=== PATIENT | male | born 1985 | race Caucasian/White ===

== ENCOUNTER 2018-01-22 22:40 | Emergency (ER) | payer OTHER ==
[2018-01-22 22:45] VITALS: BP 141/90
--- NOTE | 2018-01-22 22:47 | EDPHY ---
H & P Stated Complaint: L hip pain, increasing x2 days, "tearing pain", worse when lifting Time Seen by Provider: 01/22/18 22:47 HPI/ROS: HPI: This is a 32-year-old male who presents with Chief Complaint: L hip pain, increasing x2 days, "tearing pain", worse when lifting Location: Left hip Quality: Pain Duration: 2 days Signs and Symptoms: No bleeding, no radiation, no numbness, no weakness, no tingling, no incontinence, + decreased range of motion, no swelling, + pain, no fever Timing: Gradual onset Severity: Moderate to severe Context: Patient reports that 2 days ago he went for 2 and 0.5 mi run which is not atypical for him and then approximately 12 hr later he started to developed left anterior hip pain that worsened with hip flexion. He reports the pain is nonradiating in nature. Pain is kind of mild and constant at baseline but if he ambulates her bears weight or flexes his hip the pain increases to 8/10. He reports that he had a similar injury when he was in high school when he ran cross-country. He has tried Tylenol and ibuprofen with no relief. Denies bowel or bladder changes, paresthesias, weakness. Modifying Factors: See above Comment: ROS: A comprehensive 10 system review of systems is otherwise negative aside from elements mentioned in the history of present illness. MEDICAL/SURGICAL/SOCIAL HISTORY: Medical history: Generally healthy. Does not take any regular medications. Surgical history: Denies Social history: Smoker. CONSTITUTIONAL: Well-developed, well-nourished adult white male, awake and alert, no obvious distress HEENT: Atraumatic and normocephalic. NECK: supple EXTREMITIES: 2/2 pulses, strength 5/5, HIP: Tenderness in the anterior portion ; no deformity or bulging appreciated; severe pain with flexion; Flexion decreased to 65, extension decreased to 75, hyper extension to 15, abduction to 45. Moderate Pain with internal rotation and external rotation. No tenderness over greater trochanter. DIP/PIP/MCP flexion/extension intact with good light touch sensation. no deformities, no clubbing, no cyanosis or edema. NEUROLOGICAL: no focal neuro deficits. GCS 15. Light touch sensation intact. SKIN: Warm and dry, no erythema. no rash. Good capillary refill. Source: Patient Exam Limitations: No limitations - Personal History Current Tetanus Diphtheria and Acellular Pertussis (TDAP): Yes - Medical/Surgical History Hx Asthma: No Hx Chronic Respiratory Disease: No Hx Diabetes: No Hx Cardiac Disease: No Hx Renal Disease: No Hx Cirrhosis: No Hx Alcoholism: No Hx HIV/AIDS: No Hx Splenectomy or Spleen Trauma: No Other PMH: denies - Social History Smoking Status: Current some day smoker Constitutional: Initial Vital Signs Temperature (C) 36.6 C 01/22/18 22:42 Heart Rate 120 H 01/22/18 22:42 Respiratory Rate 18 01/22/18 22:42 Blood Pressure 141/90 H 01/22/18 22:42 O2 Sat (%) 97 01/22/18 22:42 O2 Delivery Mode Room Air Allergies/Adverse Reactions: dark chocolate Allergy (Uncoded 01/22/18 22:42) mushrooms Allergy (Uncoded 01/22/18 22:42) Home Medications: Medication Instructions Recorded Cyclobenzaprine [Flexeril 10 MG 10 mg PO Q8 PRN #15 tab 01/22/18 (*)] oxyCODONE/APAP 5/325 [Percocet 1 - 2 tab PO Q4H PRN #10 tab 01/22/18 5/325 (*)] Medical Decision Making ED Course/Re-evaluation: No neurological deficits to warrant emergent MRI of the hip in the emergency room. Given Percocet and Valium with adequate pain relief. Provided crutches the patient and advised rest, pain control, muscle relaxers, orthopedic follow-up if symptoms persist for MRI No signs of neurovascular compromise/tenting of skin/compartment syndrome/ extremities and joints examined above and below area of concern and are neurovascularly intact. This patient was seen under the supervision of my secondary supervising physician. I evaluated care for this patient independently. Discussed this patient with Dr. Leyva. Differential Diagnosis: Differential diagnosis includes but is not limited to ileo psoas tendinitis, IT band, quadriceps strain, groin strain, labral tear. - Data Points Medications Given: Discontinued Medications Diazepam (Valium) 5 mg PO EDNOW ONE Stop: 01/22/18 22:54 Last Admin: 01/22/18 22:57 Dose: 5 mg Oxycodone/Acetaminophen (Percocet 5/325) 1 tab PO EDNOW ONE Stop: 01/22/18 22:54 Last Admin: 01/22/18 22:57 Dose: 1 tab Departure - Departure Disposition: Home, Routine, Self-Care Clinical Impression: Strain of left iliopsoas muscle Qualifiers: Encounter type: initial encounter Qualified Code(s): S76.912A - Strain of unspecified muscles, fascia and tendons at thigh level, left thigh, initial encounter Condition: Good Instructions: Hip Sprain (ED) Additional Instructions: Take Tylenol 650 mg every 4 hours and/or Ibuprofen 600 mg every 8 hours with food as needed for pain. Use Percocet every 6 hours as needed for severe/break through pain. Do not use Tylenol and Percocet concomitantly. Use Flexeril every 8 hr as needed for muscle spasm. Apply ice for 30 minutes at a time; 2-3 times per day for the next 1-2 days. Use crutches to aid ambulation. Start with toe-touch weight-bearing status on the left lower extremity. Follow up with Orthopedics in 1-2 weeks if symptoms persist at which time they will evaluate and recommend with you if conservative management versus further imaging like MRI is indicated. Referrals: Dennis Sequeira MD [Medical Doctor] - As per Instructions Prescriptions: Cyclobenzaprine [Flexeril 10 MG (*)] 10 mg PO Q8 PRN #15 tab PRN Reason: Spasms oxyCODONE/APAP 5/325 [Percocet 5/325 (*)] 1 - 2 tab PO Q4H PRN #10 tab PRN Reason: Pain, Severe
[2018-01-22] MEDS ORDERED: DIAZEPAM 5 MG TAB PO ONE (22:53)
[2018-01-22] MEDS ORDERED: OXYCODONE/APAP 5/325 TAB PO ONE (22:53)
== END 2018-01-22 23:39 | disposition home or self-care (01) ==
DX: S76.912A Strain of unspecified muscles, fascia and tendons at thigh level, left thigh, initial encounter (principal); F17.200 Nicotine dependence, unspecified, uncomplicated; Y99.9 Unspecified external cause status

== ENCOUNTER 2018-06-06 22:11 | Emergency (ER) | payer OTHER ==
[2018-06-06 22:20] VITALS: BP 133/102
--- NOTE | 2018-06-06 22:48 | EDPHY ---
H & P Stated Complaint: right index finger LAC Time Seen by Provider: 06/06/18 22:46 HPI/ROS: Chief Complaint: Finger laceration HPI: 32-year-old male sustained a laceration to his right index finger when the knife he was washing cut through the sponge. He has a laceration over the lateral aspect of his proximal phalanx. He is up-to-date in his tetanus. No other injuries. No numbness or weakness. ROS: 10 systems were reviewed and were negative except those elements noted in the HPI. PMH: Denies Social History: No smoking, no alcohol, no recreational drug use Family History: non-contributory Physical Exam: General: Awake, alert, no acute distress Right hand:. Patient has a 2 cm laceration over the lateral aspect of his right index finger proximal phalanx. Does not cross the joint line. He has full flexion extension strength. Sensations intact medially and laterally. Normal perfusion distally. No other injuries. Skin: No rash - Personal History Current Tetanus Diphtheria and Acellular Pertussis (TDAP): Yes - Medical/Surgical History Hx Asthma: No Hx Chronic Respiratory Disease: No Hx Diabetes: No Hx Cardiac Disease: No Hx Renal Disease: No Hx Cirrhosis: No Hx Alcoholism: No Hx HIV/AIDS: No Hx Splenectomy or Spleen Trauma: No Other PMH: denies - Social History Smoking Status: Never smoked Constitutional: Initial Vital Signs Temperature (C) 36.6 C 06/06/18 22:15 Heart Rate 89 06/06/18 22:15 Respiratory Rate 20 06/06/18 22:15 Blood Pressure 133/102 H 06/06/18 22:15 O2 Sat (%) 97 06/06/18 22:15 O2 Delivery Mode Room Air Allergies/Adverse Reactions: dark chocolate Allergy (Uncoded 06/06/18 22:14) mushrooms Allergy (Uncoded 06/06/18 22:14) Home Medications: Medication Instructions Recorded NK [No Known Home Meds] 06/06/18 Medical Decision Making Procedures: Procedure: Laceration repair. Verbal consent was obtained from the patient. The 1.5 cm laceration on the right index finger was anesthetized in the usual fashion. The wound was irrigated, draped and explored to its base with a gloved finger. There were no deep structures involved. No tendon injury was identified. The wound was repaired with 3, 5-0 Ethilon simple interrupted sutures. The wound repair was uncomplicated. The procedure was performed by myself. Departure - Departure Disposition: Home, Routine, Self-Care Clinical Impression: Laceration Condition: Good Instructions: Care For Your Stitches (ED), Finger Laceration (ED) Additional Instructions: Sutures need to be removed in 10 days. You may return to the emergency department we will be happy to perform this for you. Return sooner for increasing redness, discharge from the wound, pain, or any other concerns. Referrals: Torsten Jennings MD [Medical Doctor] - As per Instructions
== END 2018-06-06 23:15 | disposition home or self-care (01) ==
PROC: 0HQFXZZ Repair Right Hand Skin, External Approach (ICD-10-PCS; principal; 2018-06-06)
DX: S61.210A Laceration without foreign body of right index finger without damage to nail, initial encounter (principal); W26.0XXA Contact with knife, initial encounter; Y93.G1 Activity, food preparation and clean up; Y92.000 Kitchen of unspecified non-institutional (private) residence as the place of occurrence of the external cause